=== PATIENT | female | born 1975 | race African-American/Black ===

== ENCOUNTER 2017-07-08 15:45 | Emergency (ER) | payer OTHER ==
[2017-07-08 15:54] VITALS: BP 137/92; PULSE 70; TEMP 97.6; BMI 21.9
[2017-07-08] MEDS ORDERED: IBUPROFEN 600 MG TABLET (FP) PO ONE ×2 (16:27→16:29)
--- NOTE | 2017-07-08 16:28 | PDOC ---
History of Present Illness - General Chief Complaint: Bone Injury Stated Complaint: LT FOOT PAIN Time Seen by Provider: 07/08/17 16:02 History Source: Patient Exam Limitations: No Limitations - History of Present Illness Initial Comments: 07/08/17 16:32 Chief complaint: Foot injury Patient is a 42-year-old female with a history of anemia, fibroids who states that she twisted her foot at work today, is painful to walk. She also feels pain in her groin after twisting the foot. Patient is ambulatory. Patient denies hitting her head or falling or any other injuries. GENERAL/CONSTITUTIONAL: No fever, weakness. dizziness HEAD, EYES, EARS, NOSE AND THROAT: No change in vision. No ear pain or discharge. No sore throat. CARDIOVASCULAR: No chest pain RESPIRATORY: No shortness of breath or cough GASTROINTESTINAL: No pain, nausea, vomiting, diarrhea or constipation GENITOURINARY: No dysuria MUSCULOSKELETAL: No neck or back pain, + left leg SKIN: No rash NEUROLOGIC: No headache, vertigo, loss of consciousness, or loss of sensation. GENERAL: The patient is awake, alert, and fully oriented, in no acute distress. HEAD: Normal with no signs of trauma. EYES: Pupils equal, round and reactive to light, sclera anicteric, conjunctiva clear. ENT: pharynx: no erythema, no exudate, uvula midline NECK: supple CHEST: clear, nontender, rr ABD: soft, nontender EXTREMITIES: Left foot with mild swelling, across the dorsum, tenderness extending to the lateral aspect including the fifth metatarsal, otherwise Normal range of motion, no edema. NEUROLOGICAL: Normal speech, normal gait. SKIN: Warm, Dry Past History - Past Medical History Allergies/Adverse Reactions: Allergies Allergy/AdvReac Type Severity Reaction Status Date / Time No Known Allergies Allergy Verified 07/08/17 15:50 Home Medications: Ambulatory Orders NK [No Known Home Medication] 07/08/17 Anemia: Yes Other medical history: fibroids. - Suicide/Smoking/Psychosocial Hx Smoking History: Never smoked Have you smoked in the past 12 months: No Information on smoking cessation initiated: No Hx Alcohol Use: No Drug/Substance Use Hx: No Substance Use Type: None *Physical Exam - Vital Signs Last Vital Signs Temp Pulse Resp BP Pulse Ox 97.6 F 70 18 137/92 100 07/08/17 15:51 07/08/17 15:51 07/08/17 15:51 07/08/17 15:51 07/08/17 15:51 Medical Decision Making - Medical Decision Making 07/08/17 18:21 X-ray negative Discussed issues, findings, results, applicable medications and treatments and follow-up. All these were understood and all questions were answered *DC/Admit/Observation/Transfer Diagnosis at time of Disposition: Injury of foot, left Qualifiers: Encounter type: initial encounter Qualified Code(s): S99.922A - Unspecified injury of left foot, initial encounter - Discharge Dispostion Disposition: HOME Condition at time of disposition: Stable Admit: No - Referrals Referrals: Calvin Cheema MD [Staff Physician] - - Patient Instructions Printed Discharge Instructions: DI for Foot Pain Additional Instructions: Elevate, wear splint You can apply ice for 20 minutes every 2 hours for the next 2 days Motrin 600 mg every 6 hours for pain. Call the orthopedist tomorrow
== END 2017-07-08 17:11 | disposition home or self-care (01) ==
LOC: JERFT 15:45
DX: S99.822A Other specified injuries of left foot, initial encounter (principal); W01.0XXA Fall on same level from slipping, tripping and stumbling without subsequent striking against object, initial encounter; Y93.01 Activity, walking, marching and hiking; Y92.238 Other place in hospital as the place of occurrence of the external cause; Y99.0 Civilian activity done for income or pay
CPT/HCPCS: 73610-TC-LT; 73630-TC-LT; 99281-25

== ENCOUNTER 2019-09-24 14:03 | Emergency (ER) | payer OTHER ==
[2019-09-24 14:16] VITALS: BP 147/90; PULSE 93; TEMP 98.1; BMI 25.0
--- NOTE | 2019-09-24 16:39 | PDOC ---
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 The blood got on her eyeglasses and over her face and clothing. There was no needlestick, only superficial exposures. PCP: Jesusita PSH: None reported Allergies: NKA, NKDA Social Hx: Denies smoking, drinking, or other substance usage. Timing: just prior to arrival Severity: mild Exposed Location: Bilateral: Face, Eye(s), Nose/Nare Assessing Significant Risk PEP: Yes Percutaneous, Yes Blood, Yes Visibily Bloody Fluid, Yes Potentially Infectious Fluid, Yes Source patient is potentially HIV infected Past History - Past Medical History Allergies/Adverse Reactions: Allergies Allergy/AdvReac Type Severity Reaction Status Date / Time No Known Allergies Allergy Verified 09/24/19 14:10 Home Medications: Ambulatory Orders NK [No Known Home Medication] 07/08/17 Anemia: Yes COPD: No - Psycho Social/Smoking Cessation Hx Smoking History: Never smoked Have you smoked in the past 12 months: No Hx Alcohol Use: No Drug/Substance Use Hx: No Substance Use Type: None Review of Systems - Review of Systems Able to Perform ROS?: Yes Comments:: CONSTITUTIONAL: Absent: fever, no chills, no fatigue EYES: Absent: visual changes ENT: Absent: ear pain, no sore throat CARDIOVASCULAR: Absent: chest pain, no palpitations RESPIRATORY: Absent: cough, no SOB GI: Absent: abdominal pain, no nausea, no vomiting, no constipation, no diarrhea GENITOURINARY: Absent: dysuria, no frequency, no hematuria MUSKULOSKELETAL: Absent: back pain, no arthralgia, no myalgia SKIN: Absent: rash NEURO: Absent: headache *Physical Exam - Vital Signs Last Vital Signs Temp Pulse Resp BP Pulse Ox 98.1 F 93 H 18 147/90 100 09/24/19 14:11 09/24/19 14:11 09/24/19 14:11 09/24/19 14:11 09/24/19 14:11 - Physical Exam GENERAL: Well-appearing, well-nourished. No apparent distress. HEENT: Normocephalic, atraumatic. PERRL, EOM intact. CARDIOVASCULAR: Normal S1, S2. Regular rate and rhythm. PULMONARY: No evidence of respiratory distress. Lungs clear to auscultation bilaterally. No wheezing, rales or rhonchi. ABDOMEN: Soft, non-distended, non-tender. EXTREMITIES: Normal ROM in all four extremities. No gross deformities. SKIN: Warm, dry. No rash NEUROLOGICAL: No focal neurological deficits. 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 The blood got on her eyeglasses and over her face and clothing. There was no needlestick, only superficial exposures. Vital Signs Temp Pulse Resp BP Pulse Ox 98.1 F 93 H 18 147/90 100 09/24/19 14:11 09/24/19 14:11 09/24/19 14:11 09/24/19 14:11 09/24/19 14:11 MDM: Patient presents with exposure to Hep C infected blood Plan: Post exposure protocol - Hep B,C + HIV screen Discharge - Discharge Information Problems reviewed: Yes Clinical Impression/Diagnosis: History of exposure to HIV, Exposure to hepatitis C Condition: Stable - Admission No - Follow up/Referral - Patient Discharge Instructions Patient Printed Discharge Instructions: How to Handle Body Fluid Exposure -- Healthcare Worker, How to Handle Body Fluid Exposure -- Non-Healthcare Worker ( At Home, [facility] Print Language: LEBANESE - Post Discharge Activity Work/Back to School Note: Back to Work
--- NOTE | 2019-09-24 17:59 | PDOC ---
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 No direct injury. Patient is hepatitis B vaccinated. - Physicial Exam PE: 09/24/19 17:58 Vitals as noted and within normal limits Exam as noted and normal - Medical Decision Making 09/24/19 17:58 44-year-old healthy female with blood/body fluid exposure to eyes, hepatitis B vaccinated, source patient in ED and being tested. Exposure protocol Disposition accordingly
[2019-09-24 18:09] LABS: BASO % 0.5 % (0-2.0); EOS % 1.2 % (0-4.5); HEMATOCRIT 32.5 % (32.4-45.2); HEMOGLOBIN 10.6 GM/dL (10.7-15.3); LYMPH % 24.4 % (8-40); MCH 27.8 pg (25.7-33.7); MCHC 32.6 g/dl (32.0-36.0); MEAN CELL VOLUME 85.3 fl (80-96); MEAN PLT VOLUME 8.4 fl (7.5-11.1); MONO % 7.9 % (3.8-10.2); PLATELET COUNT 330 K/MM3 (134-434); RBC 3.81 M/mm3 (3.60-5.2); RDW 15.2 % (11.6-15.6); WHITE BLOOD COUNT 6.5 K/mm3 (4.0-10.0)
[2019-09-24 18:45] LABS: ALBUMIN 3.7 g/dl (3.4-5.0); BILIRUBIN,TOTAL 0.4 mg/dL (0.2-1); BLOOD UREA NITROGEN 8.5 mg/dL (7-18); CREATININE 0.6 mg/dL (0.55-1.3); POTASSIUM 3.5 mmol/L (3.5-5.1); TOT PROT 7.4 g/dl (6.4-8.2)
== END 2019-09-24 19:19 | disposition home or self-care (01) ==
LOC: JER 14:03
DX: Z77.21 Contact with and (suspected) exposure to potentially hazardous body fluids (principal); Z20.828 Contact with and (suspected) exposure to other viral communicable diseases; X58.XXXA Exposure to other specified factors, initial encounter; Y93.F9 Activity, other caregiving; Y92.238 Other place in hospital as the place of occurrence of the external cause; Y99.0 Civilian activity done for income or pay
CPT/HCPCS: 36415; 80053; 85025; 86317; 86704; 86706; 86803; 87340; 87389; 99283-25

== ENCOUNTER 2020-08-03 10:38 | Emergency (ER) | payer OTHER | END 2020-08-03 10:57 | disposition home or self-care (01) | LOC: JVIRT 10:38 | DX: Z03.818 Encounter for observation for suspected exposure to other biological agents ruled out (principal) | CPT/HCPCS: C9803; Q3014-GT; U0003 ==

== ENCOUNTER 2020-11-23 19:06 | Emergency (ER) | payer OTHER ==
[2020-11-23 19:20] VITALS: PULSE 86; TEMP 98.6; BMI 25.2
[2020-11-23] MEDS ORDERED: amLODIPine BESYLATE 5 MG TABLET (FP) ONE (19:26)
[2020-11-23] MEDS ORDERED: amLODIPine BESYLATE 5 MG TABLET (FP) PO ONE (19:27)
[2020-11-23] MEDS ORDERED: ACETAMINOPHEN 650 MG/20.3 ML ORAL SOLUTION (CUPS) PO STA (19:34)
[2020-11-23] MEDS ORDERED: ACETAMINOPHEN 325 MG TABLET (FP) ONE (19:35)
[2020-11-23 19:54] LABS: EOS % 0.9 % (0-4.5); HEMOGLOBIN 12.8 GM/dL (10.7-15.3); LYMPH % 27.1 % (8-40); MCH 28.7 pg (25.7-33.7); MCHC 33.8 g/dl (32.0-36.0); MEAN PLT VOLUME 7.7 fl (7.5-11.1); MONO % 7.2 % (3.8-10.2); NEUT % 63.8 % (42.8-82.8); PLATELET COUNT 233 K/MM3 (134-434); RBC 4.47 M/mm3 (3.60-5.2); RDW 13.7 % (11.6-15.6); WHITE BLOOD COUNT 6.5 K/mm3 (4.0-10.0)
[2020-11-23 20:17] LABS: CHLORIDE 104 mmol/L (98-107); POTASSIUM 3.6 mmol/L (3.5-5.1); SODIUM 137 mmol/L (136-145)
[2020-11-23 20:19] LABS: ALBUMIN 4.2 g/dl (3.4-5.0); ANION GAP 5 MMOL/L (8-16); BLOOD UREA NITROGEN 7.4 mg/dL (7-18); CALCIUM 9.1 mg/dL (8.5-10.1); CO2 29 mmol/L (21-32); GLUCOSE,RANDOM 87 mg/dL (74-106)
[2020-11-23 20:22] LABS: SGPT/ALT 15 U/L (13-61)
[2020-11-23 20:23] LABS: CREATININE 0.6 mg/dL (0.55-1.3); SGOT/AST 11 U/L (15-37)
[2020-11-23 20:24] LABS: BILIRUBIN,TOTAL 1.2 mg/dL (0.2-1); TOT PROT 8.1 g/dl (6.4-8.2)
[2020-11-23 20:25] LABS: ALK PHOS 95 U/L (45-117)
[2020-11-23] MEDS ORDERED: cloNIDine HCL 0.1 MG TABLET ONE (20:35)
[2020-11-23] MEDS ORDERED: cloNIDine HCL 0.1 MG TABLET PO ONE (20:37)
[2020-11-23] MEDS ORDERED: VALSARTAN 40 MG TABLET PO ONE (21:23)
[2020-11-23] MEDS ORDERED: VALSARTAN 80 MG TABLET ONE (21:23)
[2020-11-23 22:15] VITALS: BP 149/95
== END 2020-11-23 22:54 | disposition home or self-care (01) ==
LOC: JER 19:06
DX: R03.0 Elevated blood-pressure reading, without diagnosis of hypertension (principal)
CPT/HCPCS: 36415; 70450-TC; 80053; 82550; 84484; 85025; 93005; 93010; 99285-25; J0735

== ENCOUNTER 2022-07-07 09:11 | Emergency (ER) | payer BC, OTHER ==
[2022-07-07 09:29] VITALS: BP 141/105; PULSE 86; RESP 18; TEMP 98.5; BMI 24.1
== END 2022-07-07 09:50 | disposition home or self-care (01) ==
LOC: JER 09:11
DX: U07.1 COVID-19 (principal)
CPT/HCPCS: 87651; 99283-25; C9803-CS; U0003; U0005

== ENCOUNTER 2023-07-16 19:00 | Emergency (ER) | payer BC ==
[2023-07-16 19:04] VITALS: BP 147/101; PULSE 93; RESP 18; TEMP 99.8; BMI 24.6
== END 2023-07-16 20:09 | disposition home or self-care (01) ==
LOC: JERFT 19:00
DX: R51.9 Headache, unspecified (principal); R53.83 Other fatigue; U07.1 COVID-19
CPT/HCPCS: 0241U-QW; 99283-25